=== PATIENT | female | born 1975 | race African-American/Black ===

== ENCOUNTER 2019-05-24 11:07 | Emergency (ER) | payer OTHER ==
[~2019-05-24] VITALS: Ht 165.1 cm; Wt 92.5 kg
[~2019-05-24 11:07] MED LIST: IBUPROFEN600 MG ORAL
[2019-05-24 11:16] VITALS: BP 182/123
--- NOTE | 2019-05-24 11:20 | NUR ---
ED Nurse Note: patient walked into ED c/o right shoulder and rib pain since 05/22/19. patient denies any fall or injury. patient is alert awake x4 ambulatory, breathing unlabored and even.
--- NOTE | 2019-05-24 12:16 | Emergency Room Report ---
History of Present Illness General Chief Complaint: Pain Source: Patient Present Illness HPI Patient is a 43-year-old female presents after increased right-sided shoulder pain for several days. Patient reports having worsening symptoms since last night. She states that she had worsening pain with movement. She denies any recent injury. She had prior history of oral contraceptive use. She is a current smoker and smokes cigars. Pain is worse with movement. She reports pain part primarily to the posterior shoulder blade. Allergies: Coded Allergies: No Known Allergies (Unverified , 11/25/18) Patient History Past Medical History: see triage record Last Menstrual Period: 05/18/19 Now: No Reviewed Nursing Documentation: PMH: Agreed; PSxH: Agreed Nursing Documentation-PMH Past Medical History: No History, Except For Hx Hypertension: Yes Review of Systems All Other Systems: negative except mentioned in HPI Physical Exam Vital Signs Date Time Temp Pulse Resp B/P (MAP) Pulse Ox O2 Delivery O2 Flow Rate FiO2 05/24/19 11:16 98.4 84 23 182/123 97 Room Air Sp02 EP Interpretation: reviewed, normal General Appearance: normal inspection, well appearing, no apparent distress, alert, GCS 15 Head: atraumatic ENT: normal ENT inspection, hearing grossly normal, normal voice Neck: normal inspection, full range of motion, supple, no bony tend Respiratory: normal inspection, normal breath sounds, no respiratory distress, no retraction, no wheezing Cardiovascular #1: regular rate, rhythm, no edema Gastrointestinal: normal inspection, normal bowel sounds, non tender, soft, no guarding, no hernia Genitourinary: no CVA tenderness Musculoskeletal: normal inspection, decreased range of motion, tender Neurologic: normal inspection, alert, oriented x3, responsive, 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 Differential diagnosis include was not limited to rotator cuff tendinitis, septic joint, pulmonary embolism among others. Because of complexity of patient's case laboratory testing and imaging studies were ordered. Last Vital Signs Date Time Temp Pulse Resp B/P (MAP) Pulse Ox O2 Delivery O2 Flow Rate FiO2 05/24/19 11:16 98.4 84 23 182/123 (142) 97 Room Air Referrals: NON PHYSICIAN (PCP) Naresh Sanders MD May 24, 2019 12:16
[2019-05-24 12:40] LABS: BASOPHILS % (AUTO) 0.5 % (0.0-2.0); EOSINOPHILS % (AUTO) 1.5 % (0.0-3.0); HEMATOCRIT 37.4 % (37.0-47.0); HEMOGLOBIN 11.5 G/DL (12.0-16.0); LYMPHOCYTES % (AUTO) 42.3 % (20.0-45.0); MEAN CORPUSCULAR VOLUME 84 FL (80-99); MONOCYTES % (AUTO) 8.1 % (1.0-10.0); NEUTROPHILS % (AUTO) 47.7 % (45.0-75.0); PLATELET COUNT 246 K/UL (150-450); RED BLOOD COUNT 4.45 M/UL (4.20-5.40); RED CELL DISTRIBUTION WIDTH 18.5 % (11.6-14.8); WHITE BLOOD COUNT 4.5 K/UL (4.8-10.8)
--- NOTE | 2019-05-24 12:42 | NUR ---
ED Nurse Note: patient came back from xray
[2019-05-24 12:49] LABS: ANION GAP 9 mmol/L (5-15); BLOOD UREA NITROGEN 15 mg/dL (7-18); CALCIUM 8.9 MG/DL (8.5-10.1); CARBON DIOXIDE 25 MMOL/L (21-32); CHLORIDE 108 MMOL/L (98-107); CREATININE 0.8 MG/DL (0.55-1.30); POTASSIUM 3.8 MMOL/L (3.5-5.1); SODIUM 142 MMOL/L (136-145)
[2019-05-24 12:56] LABS: ALANINE AMINOTRANSFERASE 17 U/L (12-78); ALBUMIN 3.4 G/DL (3.4-5.0); ALBUMIN/GLOBULIN RATIO 0.9 (1.0-2.7); ALKALINE PHOSPHATASE 86 U/L (46-116); ASPARTATE AMINO TRANSFERASE 17 U/L (15-37); BILIRUBIN,TOTAL 0.6 MG/DL (0.2-1.0)
--- NOTE | 2019-05-24 13:25 | NUR ---
ED Nurse Note: patient reports she cannot be , patient is on her period at this time. Dr. Sanders made aware
[2019-05-24] MEDS ORDERED: Ketorolac 30mg Inj IV ONE (13:30)
[2019-05-24 13:40] VITALS: BP 182/123
[2019-05-24] MEDS ORDERED: PEPCID AC20 M2 PO (13:40)
[2019-05-24] MEDS ORDERED: IBUPROFEN600 MG ORAL (13:40)
--- NOTE | 2019-05-24 13:40 | NUR ---
ER DISCHARGE NOTE: Patient is cleared to be discharged per ERMD DR ROBLEDO, pt is aox4, on room air, with stable vital signs. pt was given dc and prescription instructions, pt was able to verbalize understanding, pt id band removed without complications. pt is able to ambulate with steady gait. pt took all belongings.
--- NOTE | 2019-05-24 13:43 | Diagnostic Imaging Report ---
EXAM: XR Right Shoulder Complete, 2 or More Views CLINICAL HISTORY: PAIN TECHNIQUE: Two or more views of the right shoulder. COMPARISON: None FINDINGS: Bones/joints: No displaced fracture or dislocation identified. Joint space is maintained. No bony lesion. Soft tissues: Normal. IMPRESSION: No acute abnormality identified.
--- NOTE | 2019-05-24 14:05 | Diagnostic Imaging Report ---
EXAM: XR Chest, 1 View CLINICAL HISTORY: PAIN TECHNIQUE: Frontal view of the chest. COMPARISON: None FINDINGS: Hardware: None. Lungs/pleura: Normal. No focal consolidation. No pleural effusion or pneumothorax. Heart/mediastinum: Normal. No cardiomegaly. Soft tissues: Unremarkable. Bones: No acute fracture. Upper abdomen: Normal. IMPRESSION: No acute disease identified.
== END 2019-05-24 13:44 | disposition home or self-care (01) ==
LOC: EMR 11:50
DX: M25.511 Pain in right shoulder (principal); I10 Essential (primary) hypertension; F17.210 Nicotine dependence, cigarettes, uncomplicated
CPT/HCPCS: 36415; 71045; 80053; 85025; 85379; 96374; 99284

== ENCOUNTER 2019-06-03 13:58 | Emergency (ER) | payer OTHER ==
[~2019-06-03] VITALS: Ht 165.1 cm; Wt 47.2 kg
[~2019-06-03 13:58] MED LIST changes: +PEPCID AC20 M2 PO
[2019-06-03 14:10] VITALS: BP 172/114
--- NOTE | 2019-06-03 14:10 | NUR ---
ED Nurse Note: pt walked in due to pain on right upper forearm no trauma, happend 1 week ago, pt was seen in the ed for the same reason. ermd on bedside. will continue to monitor.
[2019-06-03] MEDS ORDERED: TRAMADOL HCL50 MG ORAL (14:37)
[2019-06-03 14:43] VITALS: BP 150/100
--- NOTE | 2019-06-03 14:43 | NUR ---
ER DISCHARGE NOTE: Patient is cleared to be discharged per ERMD, pt is aox4, on room air, with stable vital signs. pt was given dc and prescription instructions, pt was able to verbalize understanding, pt id band removed without complications. pt is able to ambulate with steady gait. pt took all belongings.
--- NOTE | 2019-06-03 22:25 | Emergency Room Report ---
History of Present Illness General Chief Complaint: Pain Source: Patient Present Illness Allergies: Coded Allergies: No Known Allergies (Unverified , 11/25/18) Patient History Last Menstrual Period: 05/2019 Now: No Nursing Documentation-[facility] Past Medical History: No History, Except For Hx Hypertension: Yes Physical Exam Vital Signs Date Time Temp Pulse Resp B/P (MAP) Pulse Ox O2 Delivery O2 Flow Rate FiO2 06/03/19 14:04 98.4 63 20 172/114 (133) 97 Room Air Medical Decision Making Diagnostic Impression: Primary Impression: Breast lump Additional Impression: Shoulder pain Last Vital Signs Date Time Temp Pulse Resp B/P (MAP) Pulse Ox O2 Delivery O2 Flow Rate FiO2 06/03/19 14:43 98.4 60 20 150/100 97 Room Air Status: improved Disposition: HOME, SELF-CARE Condition: Stable Scripts Tramadol Hcl* (ULTRAM*) 50 Mg Tablet 50 MG ORAL Q6H PRN for For Pain, #12 TAB 0 Refills Prov: Mohinder Adams MD 06/03/19 Referrals: [facility],REFERRING (PCP) [facility] Open 24 hour /7 days a week by Appointment Only [id number] [facility] [id number] Patient Instructions: Fibroadenoma, [id number] Mohinder Adams MD Jun 03, 2019 22:24
== END 2019-06-03 14:43 | disposition home or self-care (01) ==
LOC: EDBD 13:58 → EMR 14:35
DX: M25.511 Pain in right shoulder (principal); N63.10 Unspecified lump in the right breast, unspecified quadrant; I10 Essential (primary) hypertension
CPT/HCPCS: 99281

== ENCOUNTER 2020-04-16 12:11 | Emergency (ER) | payer SELFPAY ==
[~2020-04-16] VITALS: Ht 165.1 cm; Wt 95.3 kg
[~2020-04-16 12:11] MED LIST changes: +TRAMADOL HCL50 MG ORAL
[2020-04-16] MEDS ORDERED: Omnipaque-300 100ml vial INJ PRN (12:45)
[2020-04-16] MEDS ORDERED: Ketorolac 30mg Inj IV ONE (12:45)
[2020-04-16] MEDS ORDERED: HYDROcodone/Acetamin 10/325 tab ORAL ONE (12:45)
--- NOTE | 2020-04-16 12:56 | NUR ---
ED Nurse Note: Pt ambulated to ed c/o left lower quadrant pain since yesterday with no n/v/d
[2020-04-16 12:57] VITALS: BP 158/94
[2020-04-16 13:23] LABS: BASOPHILS % (AUTO) 1.1 % (0.0-2.0); EOSINOPHILS % (AUTO) 0.4 % (0.0-3.0); HEMATOCRIT 40.7 % (37.0-47.0); HEMOGLOBIN 12.2 G/DL (12.0-16.0); LYMPHOCYTES % (AUTO) 30.8 % (20.0-45.0); MEAN CORPUSCULAR VOLUME 84 FL (80-99); MONOCYTES % (AUTO) 2.8 % (1.0-10.0); PLATELET COUNT 299 K/UL (150-450); RED BLOOD COUNT 4.87 M/UL (4.20-5.40); RED CELL DISTRIBUTION WIDTH 17.5 % (11.6-14.8); WHITE BLOOD COUNT 6.7 K/UL (4.8-10.8)
[2020-04-16 13:29] LABS: ANION GAP 11 mmol/L (5-15); BLOOD UREA NITROGEN 8 mg/dL (7-18); CALCIUM 8.8 MG/DL (8.5-10.1); CARBON DIOXIDE 26 MMOL/L (21-32); CHLORIDE 100 MMOL/L (98-107); CREATININE 0.9 MG/DL (0.55-1.30); POTASSIUM 3.5 MMOL/L (3.5-5.1); SODIUM 137 MMOL/L (136-145)
[2020-04-16 13:33] LABS: ALANINE AMINOTRANSFERASE 13 U/L (12-78); ALBUMIN 3.3 G/DL (3.4-5.0); ALBUMIN/GLOBULIN RATIO 0.6 (1.0-2.7); ALKALINE PHOSPHATASE 107 U/L (46-116); ASPARTATE AMINO TRANSFERASE 22 U/L (15-37); BILIRUBIN,TOTAL 0.8 MG/DL (0.2-1.0)
[2020-04-16] MEDS ORDERED: HYDROmorphone 1mg/ml Carpuject IVP ONE (13:45)
--- NOTE | 2020-04-16 13:45 | NUR ---
ED Nurse Note: Pt ambulated to restroom with steady gait, pt able to provide urine sample.
--- NOTE | 2020-04-16 13:50 | NUR ---
ED Nurse Note: Pt taken to CT on jarvis with radiolcecilio tech
--- NOTE | 2020-04-16 13:55 | NUR ---
Note neyda in EDM - 04/16/20 at 1359 by TERESITA ED Nurse Note: Pt ambulated to restroom with steady gait, pt able to provide urine sample.
[2020-04-16 14:34] LABS: APPEARANCE,URINE CLEAR; BILIRUBIN, URINE NEGATIVE (NEGATIVE); COLOR,URINE PALE YELLOW; GLUCOSE, URINE (UA) NEGATIVE (NEGATIVE); KETONES,URINE 1+ (NEGATIVE); LEUKOCYTE ESTERASE ,URINE 1+ (NEGATIVE); NITRITE,URINE NEGATIVE (NEGATIVE); PH,URINE 5 (4.5-8.0); PROTEIN,URINE NEGATIVE (NEGATIVE); UROBILINOGEN,URINE NORMAL MG/DL (0.0-1.0)
--- NOTE | 2020-04-16 14:53 | Diagnostic Imaging Report ---
Indication: Abdominal pain Technique: CT of the abdomen and pelvis utilizing automated exposure control with intravenous contrast. Venous scanning performed. Axial, sagittal and coronal reformats presented. CT dose: Total DLP 551.6 mGycm; CTDI vol 7.2 mGy Comparison: None Findings: Minimal dependent atelectatic changes noted at the lung bases. There is no focal consolidation, pleural effusion or pneumothorax. Partially imaged heart normal in size. There is cholelithiasis. No CT evidence to suggest acute cholecystitis. No biliary ductal dilatation. Hepatic veins and portal veins appear patent. Hepatic contour is smooth. Focal low-attenuation is noted along the falciform ligament most likely representing focal fatty infiltration. Spleen, adrenal glands and pancreas unremarkable. No peripancreatic inflammatory changes or fluid collections. Kidneys enhance symmetrically. There is no urinary tract stone, hydronephrosis or perinephric stranding. Bladder wall thickening is noted. The uterus is enlarged by multiple heterogeneous masses, some which contain calcifications, others which are low attenuation. These most likely represent fibroids. There is no free intraperitoneal air or fluid. There is no evidence of small bowel obstruction. Appendix is normal. There is a tiny fat-containing umbilical hernia. Abdominal aorta is normal in caliber with mild atherosclerotic calcification. Mild degenerative changes noted in the spine. No acute fracture identified. IMPRESSION: * Enlarged uterus containing multiple heterogeneous masses, some of which are partially calcified. Findings most likely represent fibroids. Gynecologic follow-up recommended. * Cholelithiasis without CT evidence to suggest acute cholecystitis. * No evidence of bowel obstruction. Normal appendix. The CT scanner at [facility] is accredited by the [employer] and the scans are performed using protocols designed to limit radiation exposure to as low as reasonably achievable to attain images of sufficient resolution adequate for diagnostic evaluation.
[2020-04-16 15:23] VITALS: BP 147/89
--- NOTE | 2020-04-16 15:23 | NUR ---
ER DISCHARGE NOTE: Patient is cleared to be discharged per ERMD, pt is aox4, on room air, with stable vital signs. pt was given dc and prescription instructions, pt was able to verbalize understanding, pt id band and iv site removed without complications. pt is able to ambulate with steady gait. pt took all belongings.
[2020-04-16] MEDS ORDERED: LIDODERM700 M1 TOPIC (15:26)
[2020-04-16] MEDS ORDERED: NORCO 5-325 TA1 EAC1 ORAL (15:26)
[2020-04-16] MEDS ORDERED: IBUPROFEN600 M1 ORAL (15:26)
[2020-04-16] MEDS ORDERED: ROBAXIN-750750 MG PO (15:26)
--- NOTE | 2020-04-17 17:04 | Emergency Room Report ---
History of Present Illness General Chief Complaint: Abdominal Pain Source: Patient Present Illness HPI 44-year-old female presents to ED for evaluation. States she is having lower abdominal and back pain. Started yesterday. Dull, 8 out of 10, radiating to the back. Denies flank pain. Denies fevers or chills. Denies nausea or vomiting. No other aggravating relieving factors. Denies any other associated symptoms Allergies: Coded Allergies: MORPHINE (Verified Allergy, Mild, rash, itchiness, 04/16/20) COVID-19 Screening Contact w/high risk pt: No Recent Travel to affected area: No Experienced COVID-19 symptoms?: No COVID-19 Testing performed CHIEF PASSENGER SHIP STEWARD/STEWARDESS: No Patient History Past Medical History: HTN Past Surgical History: none Pertinent Family History: none Social History: Denies: smoking, alcohol use, drug use Now: No Immunizations: UTD Reviewed Nursing Documentation: PMH: Agreed; PSxH: Agreed Nursing Documentation-PMH Hx Hypertension: Yes Review of Systems All Other Systems: negative except mentioned in HPI Physical Exam Vital Signs Date Time Temp Pulse Resp B/P (MAP) Pulse Ox O2 Delivery O2 Flow Rate FiO2 04/16/20 12:23 98.1 76 20 158/94 (115) 97 Room Air Sp02 EP Interpretation: reviewed, normal General Appearance: no apparent distress, alert, GCS 15, non-toxic, obese Head: normocephalic, atraumatic Eyes: bilateral eye normal inspection, bilateral eye PERRL ENT: hearing grossly normal, normal pharynx, no angioedema, normal voice Neck: full range of motion, supple/symm/no masses Respiratory: chest non-tender, lungs clear, normal breath sounds, speaking full sentences Cardiovascular #1: regular rate, rhythm, no edema Cardiovascular #2: 2+ carotid (R), 2+ carotid (L), 2+ radial (R), 2+ radial (L) , 2+ dorsalis pedis (R), 2+ dorsalis pedis (L) Gastrointestinal: normal bowel sounds, soft, non-distended, no guarding, no rebound, tenderness - LLQ Rectal: deferred Genitourinary: normal inspection, no CVA tenderness Musculoskeletal: back normal, normal range of motion, gait/station normal, non- tender Neurologic: alert, motor strength/tone normal, oriented x3, sensory intact, responsive, speech normal Psychiatric: judgement/insight normal, memory normal, mood/affect normal, no suicidal/homicidal ideation Reflexes: 3+ bicep (R), 3+ bicep (L), 3+ tricep (R), 3+ tricep (L), 3+ knee (R) , 3+ knee (L) Skin: no rash Lymphatic: no adenopathy Medical Decision Making Diagnostic Impression: Primary Impression: Fibroids Additional Impression: Back pain Qualified Codes: M54.5 - Low back pain ER Course Hospital Course 44-year-old F presents to ED with abdominal pain and back pain Differential diagnosis includes-appendicitis, cholecystitis, small bowel obstruction, gastritis, Clinical course Patient placed on stretcher. After initial history and physical I ordered labs , IV fluids, pain medications and CT scan Labs - no leukocytosis, Cr 1.6, LFTs normal, UA unremarkable CT scan shows no acute pathology - large calicifactions in uterus consistent with fibroids Upon reassessment, patient states pain has improved. Discussed findings with patient. The enlarged calcifications in the uterus do not appear to be consistent with patient source of pain. Likely an incidental finding. I believe her pain was muscular. Safe for discharge for close outpatient follow- up. Provided copy of CT report. 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 Diagnosis - fibroids, back pain Stable and discharged to home. Followup with PMD. Return to ED if symptoms recur or worsen Labs Test 04/16/20 12:45 04/16/20 13:50 White Blood Count 6.7 K/UL (4.8-10.8) Red Blood Count 4.87 M/UL (4.20-5.40) Hemoglobin 12.2 G/DL (12.0-16.0) Hematocrit 40.7 % (37.0-47.0) Mean Corpuscular Volume 84 FL (80-99) Mean Corpuscular Hemoglobin 25.0 PG (27.0-31.0) Mean Corpuscular Hemoglobin Concent 29.9 G/DL (32.0-36.0) Red Cell Distribution Width 17.5 % (11.6-14.8) Platelet Count 299 K/UL (150-450) Mean Platelet Volume 6.8 FL (6.5-10.1) Neutrophils (%) (Auto) 65.0 % (45.0-75.0) Lymphocytes (%) (Auto) 30.8 % (20.0-45.0) Monocytes (%) (Auto) 2.8 % (1.0-10.0) Eosinophils (%) (Auto) 0.4 % (0.0-3.0) Basophils (%) (Auto) 1.1 % (0.0-2.0) Sodium Level 137 MMOL/L (136-145) Potassium Level 3.5 MMOL/L (3.5-5.1) Chloride Level 100 MMOL/L (98-107) Carbon Dioxide Level 26 MMOL/L (21-32) Anion Gap 11 mmol/L (5-15) Blood Urea Nitrogen 8 mg/dL (7-18) Creatinine 0.9 MG/DL (0.55-1.30) Estimat Glomerular Filtration Rate > 60 mL/min (>60) Glucose Level 93 MG/DL (74-106) Calcium Level 8.8 MG/DL (8.5-10.1) Total Bilirubin 0.8 MG/DL (0.2-1.0) Aspartate Amino Transf (AST/SGOT) 22 U/L (15-37) Alanine Aminotransferase (ALT/SGPT) 13 U/L (12-78) Alkaline Phosphatase 107 U/L (46-116) Total Protein 8.4 G/DL (6.4-8.2) Albumin 3.3 G/DL (3.4-5.0) Globulin 5.1 g/dL Albumin/Globulin Ratio 0.6 (1.0-2.7) Lipase 88 U/L (73-393) Human Chorionic Gonadotropin, Qual Negative (NEGATIVE) Urine Color Pale yellow Urine Appearance Clear Urine pH 5 (4.5-8.0) Urine Specific [place] 1.010 (1.005-1.035) Urine Protein Negative (NEGATIVE) Urine Glucose (UA) Negative (NEGATIVE) Urine Ketones 1+ (NEGATIVE) Urine Blood Negative (NEGATIVE) Urine Nitrite Negative (NEGATIVE) Urine Bilirubin Negative (NEGATIVE) Urine Urobilinogen Normal MG/DL (0.0-1.0) Urine Leukocyte Esterase 1+ (NEGATIVE) Urine RBC 0-2 /HPF (0 - 2) Urine WBC 0-2 /HPF (0 - 2) Urine Squamous Epithelial Cells Few /LPF (NONE/OCC) Urine Bacteria Occasional /HPF (NONE) Urine Mucus Occasional /LPF Urine HCG, Qualitative Negative (NEGATIVE) CT/MRI/US Diagnostic Results CT/MRI/US Diagnostic Results : Imaging Test Ordered: CT A/P Impression Procedure: CT Abdomen Pelvis w/Contrast Indication: Abdominal pain Technique: CT of the abdomen and pelvis utilizing automated exposure control with intravenous contrast. Venous scanning performed. Axial, sagittal and coronal reformats presented. CT dose: Total DLP 551.6 mGycm; CTDI vol 7.2 mGy Comparison: None Findings: Minimal dependent atelectatic changes noted at the lung bases. There is no focal consolidation, pleural effusion or pneumothorax. Partially imaged heart normal in size. There is cholelithiasis. No CT evidence to suggest acute cholecystitis. No biliary ductal dilatation. Hepatic veins and portal veins appear patent. Hepatic contour is smooth. Focal low-attenuation is noted along the falciform ligament most likely representing focal fatty infiltration. Spleen, adrenal glands and pancreas unremarkable. No peripancreatic inflammatory changes or fluid collections. Kidneys enhance symmetrically. There is no urinary tract stone, hydronephrosis or perinephric stranding. Bladder wall thickening is noted. The uterus is enlarged by multiple heterogeneous masses, some which contain calcifications, others which are low attenuation. These most likely represent fibroids. There is no free intraperitoneal air or fluid. There is no evidence of small bowel obstruction. Appendix is normal. There is a tiny fat-containing umbilical hernia. Abdominal aorta is normal in caliber with mild atherosclerotic calcification. Mild degenerative changes noted in the spine. No acute fracture identified. IMPRESSION: * Enlarged uterus containing multiple heterogeneous masses, some of which are partially calcified. Findings most likely represent fibroids. Gynecologic follow -up recommended. * Cholelithiasis without CT evidence to suggest acute cholecystitis. * No evidence of bowel obstruction. Normal appendix. The CT scanner at [facility] is accredited by the [employer] and the scans are performed using protocols designed to limit radiation exposure to as low as reasonably achievable to attain images of sufficient resolution adequate for diagnostic evaluation. Last Vital Signs Date Time Temp Pulse Resp B/P (MAP) Pulse Ox O2 Delivery O2 Flow Rate FiO2 6/19/20 15:23 98.7 82 19 147/89 100 Room Air Status: improved Disposition: HOME, SELF-CARE Condition: Stable Scripts Lidocaine Patch* (Lidoderm Patch*) 1 Each Adh..patch 1 PATCH TOPIC DAILY, #7 PATCH 0 Refills Patch(es) may remain in place for up to 12 hours in any 24-hour period. Prov: Mohinder Adams MD 04/16/20 Methocarbamol* (ROBAXIN-750*) 750 Mg Tablet 750 MG PO TID, #21 TAB 0 Refills Prov: Mohinder Adams MD 04/16/20 Ibuprofen* (MOTRIN*) 600 Mg Tablet 600 MG ORAL Q8H PRN for FOR PAIN, #30 TAB 0 Refills Prov: Mohinder Adams MD 04/16/20 Hydrocodone Bit/Acetaminophen 5-325* (NORCO 5-325 TABLET*) 1 Each Tablet 1 TAB ORAL Q6H PRN for FOR PAIN, #10 TAB 0 Refills Prov: Mohinder Adams MD 04/16/20 Referrals: NOT CHOSEN [facility]/,REFERRING (PCP) Patient Instructions: Abdominal or Pelvic Ultrasound, [id number], Back Exercises, [id number] Mohinder Adams MD Apr 17, 2020 17:04
== END 2020-04-16 15:23 | disposition home or self-care (01) ==
LOC: EMR 12:59
DX: D25.9 Leiomyoma of uterus, unspecified (principal); M54.5 Low back pain; I10 Essential (primary) hypertension; Z88.5 Allergy status to narcotic agent
CPT/HCPCS: 36415; 74177; 80053; 81003; 81025; 83690; 84703; 85025; 96374; 96375; 99284; J1170; J1885; J7040; Q9967

== ENCOUNTER 2020-11-17 07:14 | Inpatient (IN) | payer MEDICAID ==
[~2020-11-17] VITALS: Ht 165.1 cm; Wt 90.7 kg
[~2020-11-17 07:14] MED LIST changes: +IBUPROFEN600 M1 ORAL; +LIDODERM700 M1 TOPIC; +NORCO 5-325 TA1 EAC1 ORAL; +ROBAXIN-750750 MG PO
[2020-11-17] MEDS ORDERED: LORazepam Inj 2mg/ml 1ml IV ONE (07:30)
[2020-11-17 07:38] LABS: BASOPHILS % (AUTO) 2.4 % (0.0-2.0); EOSINOPHILS % (AUTO) 0.5 % (0.0-3.0); HEMATOCRIT 43.4 % (37.0-47.0); HEMOGLOBIN 13.2 G/DL (12.0-16.0); LYMPHOCYTES % (AUTO) 38.4 % (20.0-45.0); MEAN CORPUSCULAR VOLUME 90 FL (80-99); MONOCYTES % (AUTO) 4.1 % (1.0-10.0); NEUTROPHILS % (AUTO) 54.6 % (45.0-75.0); PLATELET COUNT 209 K/UL (150-450); RED BLOOD COUNT 4.85 M/UL (4.20-5.40); RED CELL DISTRIBUTION WIDTH 16.6 % (11.6-14.8); WHITE BLOOD COUNT 3.5 K/UL (4.8-10.8)
--- NOTE | 2020-11-17 07:40 | Emergency Room Report ---
History of Present Illness General Chief Complaint: Headache Source: Patient, Medical Record Present Illness HPI 44-year-old female with a history of recent hysterectomy 8 weeks ago, history of hypertension on amlodipine, here with right-sided headache for a week and a right upper extremity weakness for 3 days. Patient says that she has been doing well after her hysterectomy and then a week ago had gradual onset of right-sided headache "behind my right eye." Denies any vision changes. Said that she has been using Tylenol for the headache. 3 weeks ago began to have weakness of her right upper extremity. Had never had symptoms like these before. No history of CVA. No head trauma. No other weakness. Denies vision changes, fevers, chills, chest pain, palpitation, shortness of breath, back pain, abdominal pain, nausea, vomiting, diarrhea, dysuria. Allergies: Coded Allergies: MORPHINE (Verified Allergy, Mild, rash, itchiness, 04/16/20) COVID-19 Screening Contact w/high risk pt: No Recent Travel to affected area: No Experienced COVID-19 symptoms?: No COVID-19 Testing performed LINING [employer]S SEWER: No COVID-19 Testing Source: [employer] Nursing Documentation-[facility] Past Medical History: No History, Except For Hx Hypertension: Yes Review of Systems All Other Systems: negative except mentioned in HPI Physical Exam Vital Signs Date Time Temp Pulse Resp B/P (MAP) Pulse Ox O2 Delivery O2 Flow Rate FiO2 11/17/20 07:16 97.5 85 22 182/111 (134) 100 Room Air Sp02 EP Interpretation: reviewed, normal General Appearance: alert, non-toxic, moderate distress, other - Highly anxious, hyperventilating Head: normocephalic, atraumatic Eyes: bilateral eye normal inspection, bilateral eye PERRL ENT: hearing grossly normal, normal pharynx, no angioedema, normal voice Neck: full range of motion, supple/symm/no masses Respiratory: chest non-tender, lungs clear, normal breath sounds, speaking full sentences Cardiovascular #1: regular rate, rhythm, no edema Cardiovascular #2: 2+ carotid (R), 2+ carotid (L), 2+ radial (R), 2+ radial (L), 2+ dorsalis pedis (R), 2+ dorsalis pedis (L) Gastrointestinal: normal bowel sounds, non tender, soft, non-distended, no guarding, no rebound Rectal: deferred Genitourinary: normal inspection, no CVA tenderness Musculoskeletal: back normal, normal range of motion, gait/station normal, non- tender Neurologic: alert, oriented x3, sensory intact, responsive, speech normal, other - 5 out of 5 strength all extremities, but notably weaker flexor and extensor strength of the right upper extremity compared to left upper extremity. Positive pronator drift right upper extremity. NIH stroke scale 1 Psychiatric: judgement/insight normal, memory normal, mood/affect normal, no suicidal/homicidal ideation Lymphatic: no adenopathy Medical Decision Making Diagnostic Impression: Primary Impression: Headache Additional Impression: CVA (cerebral vascular accident) ER Course EKG: NSR, no ischemia, intervals WNL. No ectopy. Rate 63 bpm Rhythm strip: patient monitored for arrhythmias - no malignant dysrhythmias, runs of PVCs, nor pauses noted CT head: No acute abnormalities CXR: No infiltrate/effusion. Mediastinum within normal limits. No consolidations. No free air under the diaphragm. No bony abnormalities Laboratory Tests Test 11/17/20 07:20 11/17/20 08:00 White Blood Count 3.5 K/UL (4.8-10.8) L Red Blood Count 4.85 M/UL (4.20-5.40) Hemoglobin 13.2 G/DL (12.0-16.0) Hematocrit 43.4 % (37.0-47.0) Mean Corpuscular Volume 90 FL (80-99) Mean Corpuscular Hemoglobin 27.3 PG (27.0-31.0) Mean Corpuscular Hemoglobin Concent 30.4 G/DL (32.0-36.0) L Red Cell Distribution Width 16.6 % (11.6-14.8) H Platelet Count 209 K/UL (150-450) Mean Platelet Volume 7.9 FL (6.5-10.1) Neutrophils (%) (Auto) 54.6 % (45.0-75.0) Lymphocytes (%) (Auto) 38.4 % (20.0-45.0) Monocytes (%) (Auto) 4.1 % (1.0-10.0) Eosinophils (%) (Auto) 0.5 % (0.0-3.0) Basophils (%) (Auto) 2.4 % (0.0-2.0) H Sodium Level 142 MMOL/L (136-145) Potassium Level 4.0 MMOL/L (3.5-5.1) Chloride Level 107 MMOL/L (98-107) Carbon Dioxide Level 24 MMOL/L (21-32) Anion Gap 11 mmol/L (5-15) Blood Urea Nitrogen 15 mg/dL (7-18) Creatinine 0.9 MG/DL (0.55-1.30) Estimated Glomerular Filtration Rate > 60 mL/min (>60) Glucose Level 114 MG/DL (74-106) H Calcium Level 9.4 MG/DL (8.5-10.1) Total Bilirubin 0.5 MG/DL (0.2-1.0) Aspartate Amino Transferase (AST) 31 U/L (15-37) Alanine Aminotransferase (ALT) 25 U/L (12-78) Alkaline Phosphatase 147 U/L (46-116) H Troponin I 0.000 ng/mL (0.000-0.056) Total Protein 8.2 G/DL (6.4-8.2) Albumin 3.6 G/DL (3.4-5.0) Globulin 4.6 g/dL Albumin/Globulin Ratio 0.8 (1.0-2.7) L Urine Color Pale yellow Urine Appearance Clear Urine pH 6 (4.5-8.0) Urine Specific [place] 1.010 (1.005-1.035) Urine Protein Negative (NEGATIVE) Urine Glucose (UA) Negative (NEGATIVE) Urine Ketones Negative (NEGATIVE) Urine Blood 1+ (NEGATIVE) H Urine Nitrite Negative (NEGATIVE) Urine Bilirubin Negative (NEGATIVE) Urine Urobilinogen Normal MG/DL (0.0-1.0) Urine Leukocyte Esterase 1+ (NEGATIVE) H Urine RBC 0-2 /HPF (0 - 2) Urine WBC 0-2 /HPF (0 - 2) Urine Squamous Epithelial Cells Occasional /LPF Urine Bacteria Occasional /HPF (NONE) Urine Opiates Screen Negative (NEGATIVE) Urine Barbiturates Screen Negative (NEGATIVE) Phencyclidine (PCP) Screen Negative (NEGATIVE) Urine Amphetamines Screen Negative (NEGATIVE) Urine Benzodiazepines Screen Negative (NEGATIVE) Urine Cocaine Screen Negative (NEGATIVE) Urine Marijuana (THC) Screen Positive (NEGATIVE) H 44-year-old female here with right upper extremity weakness. Patient had 5 out of 5 strength in all extremities but was noted to have a positive pronator drift of the right upper extremity and notable weakness of the right upper extremity compared to the left upper extremity. Patient says the symptoms have been on going for 3 days. Out of TPA window. CT had unremarkable. She was given an aspirin in the emergency department. NIH stroke scale 1. Patient admitted to telemetry for suspected CVA under care of Dr Eastman.. Last Vital Signs Date Time Temp Pulse Resp B/P (MAP) Pulse Ox O2 Delivery O2 Flow Rate FiO2 11/17/20 07:31 85 22 182/111 100 11/17/20 07:16 97.5 Room Air Jin Cardenas M.D. Nov 17, 2020 07:40
[2020-11-17 07:41] LABS: ANION GAP 11 mmol/L (5-15); BLOOD UREA NITROGEN 15 mg/dL (7-18); CALCIUM 9.4 MG/DL (8.5-10.1); CARBON DIOXIDE 24 MMOL/L (21-32); CHLORIDE 107 MMOL/L (98-107); CREATININE 0.9 MG/DL (0.55-1.30); SODIUM 142 MMOL/L (136-145)
[2020-11-17 07:45] LABS: ALANINE AMINOTRANSFERASE 25 U/L (12-78); ALBUMIN 3.6 G/DL (3.4-5.0); ALBUMIN/GLOBULIN RATIO 0.8 (1.0-2.7); ALKALINE PHOSPHATASE 147 U/L (46-116); ASPARTATE AMINO TRANSFERASE 31 U/L (15-37); BILIRUBIN,TOTAL 0.5 MG/DL (0.2-1.0)
--- NOTE | 2020-11-17 08:00 | NUR ---
ED Nurse Note:pt. came from home with c/o hypertension and headache for 1 week, pt. is ambulatory a/ox4, placed on bus monitor , blood and urine sent to labs, pt. received iv med, has ct scan done
[2020-11-17 08:21] LABS: APPEARANCE,URINE CLEAR; BILIRUBIN, URINE NEGATIVE (NEGATIVE); COLOR,URINE PALE YELLOW; GLUCOSE, URINE (UA) NEGATIVE (NEGATIVE); KETONES,URINE NEGATIVE (NEGATIVE); LEUKOCYTE ESTERASE ,URINE 1+ (NEGATIVE); NITRITE,URINE NEGATIVE (NEGATIVE); PH,URINE 6 (4.5-8.0); PROTEIN,URINE NEGATIVE (NEGATIVE); UROBILINOGEN,URINE NORMAL MG/DL (0.0-1.0)
[2020-11-17 08:24] VITALS: BP 160/93
[2020-11-17 08:49] VITALS: BP 134/73
--- NOTE | 2020-11-17 09:09 | Diagnostic Imaging Report ---
Indication: Headache, hypertension Technique: Continuous helical CT scanning of the head was performed without intravenous contrast material. Axial and coronal 5 mm sections were generated. Radiation dose was minimized using automated exposure control Dose: Total Dose Length Product - DLP 1018.[address] Dose Index - CTDIvol(s) 53.4 mGy. Comparison: None FINDINGS: There is no acute intracranial hemorrhage, mass effect or cortical edema. Powell-white differentiation appears preserved. There is no shift of the midline structures. The ventricles, cisterns and sulci are normal for age. No effacement of the basal cisterns. Partially empty sella suggested. Visualized mastoid air cells and paranasal sinuses are unremarkable. No focal lesions of the bony calvarium or soft tissues of the scalp are seen. IMPRESSION: No evidence of acute intracranial hemorrhage, mass effect or cortical edema. MRI may be obtained for more sensitive evaluation as clinically indicated. The CT scanner at [facility] is accredited by the [place] [employer] and the scans are performed using protocols designed to limit radiation exposure to as low as reasonably achievable to attain images of sufficient resolution adequate for diagnostic evaluation.
--- NOTE | 2020-11-17 09:21 | Diagnostic Imaging Report ---
Indication: Chest pain, hypertension Technique: XRAY Chest 1v Comparison: 05/24/2019 Findings: Heart size and mediastinal contours are within normal limits for AP technique. There is no focal airspace consolidation, pneumothorax or pleural effusion. Osseous structures demonstrate no acute abnormality. Impression: No radiographic evidence of acute cardiopulmonary disease.
[2020-11-17] MEDS ORDERED: BP med (09:35)
[2020-11-17 12:25] VITALS: BP 148/92
--- NOTE | 2020-11-17 13:00 | NUR ---
ED Nurse Note:called report to tele, given to Rajendra RN, pt. taken up stairs
--- NOTE | 2020-11-17 13:27 | NUR ---
NURSE NOTES: Patient received from ED nurse. patient ambulated to bed with steady gait. Patient on room air was O2 saturation within normal limits. The patient on arrival came with Hypertension and on arrival BP was 187/119. Primary contacted for orders and PRN medication fro BP. Patient has a right AC IV 20G that is saline locked, clean patent and intact. The patient belonging list were verified and acknowledged. The patients bed is in lowest position, locked, side rails x2, bed alarm in zone 1 and call light within reach. Patient oriented to room and call light for any further needs.
--- NOTE | 2020-11-17 14:43 | Cardiac Electrophysiology PN ---
Subjective Subjective [id number] Objective Last 24 Hour Vital Signs Date Time Temp Pulse Resp B/P (MAP) Pulse Ox O2 Delivery O2 Flow Rate FiO2 11/17/20 13:25 Room Air 11/17/20 12:29 97.5 66 18 148/92 100 Room Air 11/17/20 12:25 97.5 66 18 148/92 100 Room Air 11/17/20 08:49 97.5 68 18 134/73 100 Room Air 11/17/20 08:24 97.5 67 18 160/93 100 Room Air 11/17/20 08:23 85 22 182/111 100 11/17/20 07:31 85 22 182/111 100 11/17/20 07:16 97.5 85 22 182/111 (134) 100 Room Air Laboratory Tests Test 11/17/20 07:20 11/17/20 08:00 White Blood Count 3.5 K/UL (4.8-10.8) L Red Blood Count 4.85 M/UL (4.20-5.40) Hemoglobin 13.2 G/DL (12.0-16.0) Hematocrit 43.4 % (37.0-47.0) Mean Corpuscular Volume 90 FL (80-99) Mean Corpuscular Hemoglobin 27.3 PG (27.0-31.0) Mean Corpuscular Hemoglobin Concent 30.4 G/DL (32.0-36.0) L Red Cell Distribution Width 16.6 % (11.6-14.8) H Platelet Count 209 K/UL (150-450) Mean Platelet Volume 7.9 FL (6.5-10.1) Neutrophils (%) (Auto) 54.6 % (45.0-75.0) Lymphocytes (%) (Auto) 38.4 % (20.0-45.0) Monocytes (%) (Auto) 4.1 % (1.0-10.0) Eosinophils (%) (Auto) 0.5 % (0.0-3.0) Basophils (%) (Auto) 2.4 % (0.0-2.0) H Sodium Level 142 MMOL/L (136-145) Potassium Level 4.0 MMOL/L (3.5-5.1) Chloride Level 107 MMOL/L (98-107) Carbon Dioxide Level 24 MMOL/L (21-32) Anion Gap 11 mmol/L (5-15) Blood Urea Nitrogen 15 mg/dL (7-18) Creatinine 0.9 MG/DL (0.55-1.30) Estimat Glomerular Filtration Rate > 60 mL/min (>60) Glucose Level 114 MG/DL (74-106) H Calcium Level 9.4 MG/DL (8.5-10.1) Total Bilirubin 0.5 MG/DL (0.2-1.0) Aspartate Amino Transf (AST/SGOT) 31 U/L (15-37) Alanine Aminotransferase (ALT/SGPT) 25 U/L (12-78) Alkaline Phosphatase 147 U/L (46-116) H Troponin I 0.000 ng/mL (0.000-0.056) Total Protein 8.2 G/DL (6.4-8.2) Albumin 3.6 G/DL (3.4-5.0) Globulin 4.6 g/dL Albumin/Globulin Ratio 0.8 (1.0-2.7) L Urine Color Pale yellow Urine Appearance Clear Urine pH 6 (4.5-8.0) Urine Specific [place] 1.010 (1.005-1.035) Urine Protein Negative (NEGATIVE) Urine Glucose (UA) Negative (NEGATIVE) Urine Ketones Negative (NEGATIVE) Urine Blood 1+ (NEGATIVE) H Urine Nitrite Negative (NEGATIVE) Urine Bilirubin Negative (NEGATIVE) Urine Urobilinogen Normal MG/DL (0.0-1.0) Urine Leukocyte Esterase 1+ (NEGATIVE) H Urine RBC 0-2 /HPF (0 - 2) Urine WBC 0-2 /HPF (0 - 2) Urine Squamous Epithelial Cells Occasional /LPF Urine Bacteria Occasional /HPF (NONE) Urine Opiates Screen Negative (NEGATIVE) Urine Barbiturates Screen Negative (NEGATIVE) Phencyclidine (PCP) Screen Negative (NEGATIVE) Urine Amphetamines Screen Negative (NEGATIVE) Urine Benzodiazepines Screen Negative (NEGATIVE) Urine Cocaine Screen Negative (NEGATIVE) Urine Marijuana (THC) Screen Positive (NEGATIVE) H Donell Urias MD Nov 17, 2020 14:43
[2020-11-17] MEDS ORDERED: Varibar Pudding 230ml MC PRN (15:00)
[2020-11-17] MEDS ORDERED: Varibar Nectar 240ml MC PRN (15:00)
[2020-11-17] MEDS ORDERED: Varibar Thin Liquid powder 148gm MC PRN (15:00)
[2020-11-17] MEDS ORDERED: Varibar Honey 250ml MC PRN (15:00)
[2020-11-17] MEDS: D5 1/2NS 1,000 ML IV SCH (15:29)
--- NOTE | 2020-11-17 15:30 | Consultation ---
DATE OF CONSULTATION: 11/17/2020 CARDIOLOGY CONSULTATION REFERRING PHYSICIAN: Stuart Eastman D.O. REASON FOR CONSULTATION: Accelerated hypertension. HISTORY OF PRESENT ILLNESS: The patient is a 44-year-old lady with history of hysterectomy about 8 weeks ago as well as history of hypertension, who presented to the emergency room with severe right-sided headache for a week and right upper extremity weakness for 3 days. The patient has been doing well since her hysterectomy, then, a week ago, had gradual onset of right-sided headache behind her right eye. Does not have any vision changes. The patient also started having weakness in the right upper extremity about 3 weeks ago. The patient has no prior stroke or any coronary artery disease or congestive heart failure. The patient's blood pressure is 180s/111 in the emergency room with a pulse of 85. At the time of my evaluation, the patient denies any chest pain or shortness of breath. REVIEW OF SYSTEMS: Negative other than what was mentioned in history of present illness. PAST MEDICAL HISTORY: As mentioned above. FAMILY HISTORY: Noncontributory. SOCIAL HISTORY: She lives at home, does not smoke or drink alcohol. PHYSICAL EXAMINATION: VITAL SIGNS: Blood pressure of 148/92, pulse 66, respirations 18. She is afebrile. HEAD AND NECK: No JVD. LUNGS: Clear. CARDIOVASCULAR: Regular S1 and S2 with no gallop or murmur. ABDOMEN: Soft. EXTREMITIES: No pitting edema. LABORATORY AND DIAGNOSTIC DATA: Labs show white count of 3.5, hemoglobin 13.2, hematocrit 43.4, platelet count 209. Sodium 142, potassium 4.0, BUN of 15, creatinine of 0.9, and glucose of 114. First troponin was negative. Urine tox is positive for marijuana. ASSESSMENT AND PLAN: 1. Accelerated hypertension, causing severe headache, possibly TIA. We will start the patient on amlodipine 5 mg b.i.d. and lisinopril 10 mg b.i.d. I will add p.r.n. clonidine as well. We will check a thyroid function test and we will get an echocardiogram for further evaluation and management. 2. Weakness. The CT of the brain was negative at this time. Further evaluation by Neurology. Thank you very much for allowing me to participate in the care of this patient. Please do not hesitate to contact me for any questions regarding my evaluation. Donell Urias M.D. DR: PAULY JOB#: [id number] CC:
[2020-11-17 16:00] VITALS: BP 146/95
[2020-11-17] MEDS: Lisinopril 10mg tab ORAL SCH (17:26)
--- NOTE | 2020-11-17 18:37 | NUR ---
NURSE NOTES: Dr. Holder has been contacted for DVT prophylaxis in which he prescribed the patient walk 300 feet a day and no pharmacological DVT due to possible CVA.
--- NOTE | 2020-11-17 19:48 | NUR ---
NURSE HAND-OFF REPORT: Important Events on Shift:[Admission, BP meds] Patient Status: [Full code] Diet: [Regular diet] Pending Orders: [N/A] Pending Results/Labs:[N/A] Pending MD notification:[N/A] Latest Vital Signs: Temperature 98.2 , Pulse 82 , B/P 150 /86 , Respiratory Rate 20 , O2 SAT 97 , Room Air, O2 Flow Rate . Vital Sign Comment: [] EKG Rhythm: Sinus Rhythm Rhythm change?: N MD Notified?: - MD Response: Latest Manzo Fall Score: 40 Fall Risk: Medium Risk Safety Measures: Call light Within Reach, Bed Alarm Zone 1, Side Rails Side Rails x2, Bed position Low and Locked. Fall Precautions: [place] Patient Fall Education Report given to [SHON Willard].
--- NOTE | 2020-11-17 19:50 | NUR ---
NURSE NOTES: Patient received from SHON Georges. Patient is awake, alert and oriented x 4. Patient is on room air, with no signs of acute respiratory distress noted. Patient has no complaints as of the moment. Patient has an IV on her wrist 24 gauge with D5 1/2 NS running at 60 ml/hr. Bed is in the lowest position and locked, call light within reach. Will continue to monitor.
[2020-11-17 20:00] VITALS: BP_SYST 122; BP_SYST 148; BP_DIAS 68; BP_DIAS 82
--- NOTE | 2020-11-17 21:59 | Neurology Progress Note ---
Interim History Interim History Interim History CHIEF COMPLAINT: Right upper extremity weakness HPI: 44-year-old F who lives at home presents with increased weakness which began about 4 days ago and pt says that the weakness occurerd only in the the right UE with no numbness and lasted only for 24 hours. Has not happened before. Pt has a hx of hypertension and weakness. pt is now admitted to telemetry. No nausea, vomiting, or diarrhea. Negative for 10 point review of systems PAST MEDICAL HISTORY: HTN PAST SURGICAL HISTORY: Left wrist, hysterectomy. MEDICATIONS: Tylenol, amlodipine, lisinopril, clonidine. ALLERGIES: Morphine. SOCIAL HISTORY: No smoking. Positive alcohol. Positive marijuana use. Objective Physical Exam Last Vital Signs Date Time Temp Pulse Resp B/P (MAP) Pulse Ox O2 Delivery O2 Flow Rate FiO2 11/17/20 21:00 Room Air 11/17/20 20:00 70 11/17/20 20:00 99.5 18 122/68 (86) 97 Laboratory Tests Test 11/17/20 07:20 11/17/20 08:00 White Blood Count 3.5 K/UL (4.8-10.8) L Red Blood Count 4.85 M/UL (4.20-5.40) Hemoglobin 13.2 G/DL (12.0-16.0) Hematocrit 43.4 % (37.0-47.0) Mean Corpuscular Volume 90 FL (80-99) Mean Corpuscular Hemoglobin 27.3 PG (27.0-31.0) Mean Corpuscular Hemoglobin Concent 30.4 G/DL (32.0-36.0) L Red Cell Distribution Width 16.6 % (11.6-14.8) H Platelet Count 209 K/UL (150-450) Mean Platelet Volume 7.9 FL (6.5-10.1) Neutrophils (%) (Auto) 54.6 % (45.0-75.0) Lymphocytes (%) (Auto) 38.4 % (20.0-45.0) Monocytes (%) (Auto) 4.1 % (1.0-10.0) Eosinophils (%) (Auto) 0.5 % (0.0-3.0) Basophils (%) (Auto) 2.4 % (0.0-2.0) H Sodium Level 142 MMOL/L (136-145) Potassium Level 4.0 MMOL/L (3.5-5.1) Chloride Level 107 MMOL/L (98-107) Carbon Dioxide Level 24 MMOL/L (21-32) Anion Gap 11 mmol/L (5-15) Blood Urea Nitrogen 15 mg/dL (7-18) Creatinine 0.9 MG/DL (0.55-1.30) Estimat Glomerular Filtration Rate > 60 mL/min (>60) Glucose Level 114 MG/DL (74-106) H Calcium Level 9.4 MG/DL (8.5-10.1) Total Bilirubin 0.5 MG/DL (0.2-1.0) Aspartate Amino Transf (AST/SGOT) 31 U/L (15-37) Alanine Aminotransferase (ALT/SGPT) 25 U/L (12-78) Alkaline Phosphatase 147 U/L (46-116) H Troponin I 0.000 ng/mL (0.000-0.056) Total Protein 8.2 G/DL (6.4-8.2) Albumin 3.6 G/DL (3.4-5.0) Globulin 4.6 g/dL Albumin/Globulin Ratio 0.8 (1.0-2.7) L Urine Color Pale yellow Urine Appearance Clear Urine pH 6 (4.5-8.0) Urine Specific [place] 1.010 (1.005-1.035) Urine Protein Negative (NEGATIVE) Urine Glucose (UA) Negative (NEGATIVE) Urine Ketones Negative (NEGATIVE) Urine Blood 1+ (NEGATIVE) H Urine Nitrite Negative (NEGATIVE) Urine Bilirubin Negative (NEGATIVE) Urine Urobilinogen Normal MG/DL (0.0-1.0) Urine Leukocyte Esterase 1+ (NEGATIVE) H Urine RBC 0-2 /HPF (0 - 2) Urine WBC 0-2 /HPF (0 - 2) Urine Squamous Epithelial Cells Occasional /LPF Urine Bacteria Occasional /HPF (NONE) Urine Opiates Screen Negative (NEGATIVE) Urine Barbiturates Screen Negative (NEGATIVE) Phencyclidine (PCP) Screen Negative (NEGATIVE) Urine Amphetamines Screen Negative (NEGATIVE) Urine Benzodiazepines Screen Negative (NEGATIVE) Urine Cocaine Screen Negative (NEGATIVE) Urine Marijuana (THC) Screen Positive (NEGATIVE) H Neurologic Exam Objective Pt examied on facetime: CARDIOVASCULAR: pedal pulses present; pt obese LUNGS: non labored breathing ABDOMEN: Soft EXTREMITIES: No cyanosis SKIN: No rashes General neuro exam Mental status A/O x 3 expressive and receptive language intact Cranial nerve 2: vision intact Cranial nerves 3, 4, 6: EOMI no nystagmus Cranial nerve 5: pt says sensation intact b/l Cranial nerve 7: face symmetric on smile can raise eyebros CN8-Able to hear on on NML conversation B/L Cranial nerves 9 and 10. Positive for cough reflex Neck: Able to move the head to the left and right Able to shrug shoulders Cranial nerve 12: midline Pronator drift mild positive on the right Good fine finger movments Strength able to move all extremities with good ROM; Cerebellum FFTN Sensation: no loss of sensation per pt Rombergexamdeferred Gait intact narrow Impression/Recommendations Problems: (1) Right arm weakness Assessment & Plan: Rule out stroke vs TIA vs low likelihood of seizure vs cervical radic (2) Headache (3) Back pain Recommendations pronator drift on right side, with decrased fine finger movements on the right side. CT head NML plan ASA statin MRI brain MRA head and neck normotensive Hba1c FLP, TSH pt can walk and is ambulatory no need for chemical DVT ppx;pt understands and will try to walk around in room and with PT This is a complex neurological consultation, it entailed a detailed hx and decision making of high complexity. Dahlia Mark M.D. Nov 17, 2020 21:58
[2020-11-18] VITALS: BP 115/76
--- NOTE | 2020-11-18 | NUR ---
NURSE NOTES: Patient complained of headache. Notified and left a message to Dr. Eastman. Awaiting for call back.
[2020-11-18 04:00] VITALS: BP 118/80
[2020-11-18 06:48] LABS: HEMATOCRIT 37.8 % (37.0-47.0); HEMOGLOBIN 11.8 G/DL (12.0-16.0); MEAN CORPUSCULAR VOLUME 89 FL (80-99); PLATELET COUNT 209 K/UL (150-450); RED BLOOD COUNT 4.26 M/UL (4.20-5.40); RED CELL DISTRIBUTION WIDTH 16.4 % (11.6-14.8); WHITE BLOOD COUNT 4.2 K/UL (4.8-10.8)
[2020-11-18] MEDS: D5 1/2NS 1,000 ML IV SCH ×2 (06:49→23:37)
[2020-11-18 07:04] LABS: EOSINOPHILS % (AUTO) 1.1 % (0.0-3.0); LYMPHOCYTES % (AUTO) 55.6 % (20.0-45.0); NEUTROPHILS % (AUTO) 33.5 % (45.0-75.0)
[2020-11-18 07:11] LABS: ANION GAP 9 mmol/L (5-15); BLOOD UREA NITROGEN 17 mg/dL (7-18); CALCIUM 8.9 MG/DL (8.5-10.1); CARBON DIOXIDE 25 MMOL/L (21-32); CHLORIDE 109 MMOL/L (98-107); CREATININE 0.9 MG/DL (0.55-1.30); POTASSIUM 3.4 MMOL/L (3.5-5.1); SODIUM 143 MMOL/L (136-145)
--- NOTE | 2020-11-18 07:28 | NUR ---
NURSE HAND-OFF REPORT: Important Events on Shift:[Patient complained of headache. Left a message to Dr. Eastman and is aware. Blood pressure is controlled throughout shift. Patient has a scheduled MRI.] Patient Status: [Stable] Diet: [Regular diet] Pending Orders: [] Pending Results/Labs:[] Pending MD notification:[] Latest Vital Signs: Temperature 98.8 , Pulse 66 , B/P 118 /80 , Respiratory Rate 20 , O2 SAT 100 , Room Air, O2 Flow Rate . Vital Sign Comment: [] EKG Rhythm: Sinus Rhythm Rhythm change?: N MD Notified?: - MD Response: Latest Manzo Fall Score: 40 Fall Risk: Medium Risk Safety Measures: Call light Within Reach, Bed Alarm Zone 1, Side Rails Side Rails x2, Bed position Low and Locked. Fall Precautions: Patient Fall Education Report given to [SHON Georges].
--- NOTE | 2020-11-18 07:37 | NUR ---
NURSE NOTES: Patient seen in bed in semifowlers position, with no acute signs of distress. patient is on room air with oxygen saturation within normal limits. The patient has a L wrist 24G IV that is clean patent an intact. The patients bed is in lowest position, locked, side rails x2, bed alarm in zone 1 and call light within reach.
[2020-11-18 08:00] VITALS: BP 144/85
[2020-11-18] MEDS: Lisinopril 10mg tab ORAL SCH ×2 (08:35→18:22)
--- NOTE | 2020-11-18 08:50 | NUR ---
PT EVALUATION NOTE Patient seen for initial evaluation. Patient is independent with bed mobility, transfers and ambulation without assistive device. Skilled inpatient PT intervention not indicated as patient is at baseline level of function and independent with all mobility. Patient discharged from PT, José Manuel MENENDEZ notified. Patient cleared to ambulate with nursing supervision. Addendum: 11/18/20 at 1250 by RADU MAYFIELD PT Amended: Links added.
--- NOTE | 2020-11-18 09:49 | Cardiac Electrophysiology PN ---
Assessment/Plan Assessment/Plan 1. Accelerated hypertension, causing severe headache, possibly TIA. Better on amlodipine 5 mg b.i.d. and lisinopril 10 mg b.i.d. and p.r.n. clonidine Echocardiogram showed Nl EF. ECG NSR and ECG is Nl and ruled out for [place] 2. Weakness. The CT of the brain was negative at this time. Further evaluation by Neurology. MRI brain pending Subjective Subjective MRI brain pending. BP better. No CP or SOB Objective Last 24 Hour Vital Signs Date Time Temp Pulse Resp B/P (MAP) Pulse Ox O2 Delivery O2 Flow Rate FiO2 11/18/20 08:35 144/85 11/18/20 08:34 84 144/85 11/18/20 08:00 73 11/18/20 08:00 97.7 84 20 144/85 (104) 97 11/18/20 04:00 66 11/18/20 04:00 98.8 68 20 118/80 (93) 100 11/18/20 00:00 97.7 68 20 115/76 (89) 97 11/18/20 00:00 84 11/17/20 21:00 Room Air 11/17/20 20:00 70 11/17/20 20:00 99.5 18 122/68 (86) 97 11/17/20 17:26 82 150/86 11/17/20 17:26 150/86 11/17/20 16:00 76 11/17/20 16:00 98.2 20 146/95 (112) 97 11/17/20 15:31 183/112 11/17/20 13:25 Room Air 11/17/20 12:29 97.5 66 18 148/92 100 Room Air 11/17/20 12:25 97.5 66 18 148/92 100 Room Air Intake and Output 11/17/20 11/18/20 19:00 07:00 Intake Total 330 ml 140 ml Balance 330 ml 140 ml Intake Oral 120 ml 140 ml IV Total 210 ml # Voids 1 1 Laboratory Tests Test 11/18/20 06:06 White Blood Count 4.2 K/UL (4.8-10.8) L Red Blood Count 4.26 M/UL (4.20-5.40) Hemoglobin 11.8 G/DL (12.0-16.0) L Hematocrit 37.8 % (37.0-47.0) Mean Corpuscular Volume 89 FL (80-99) Mean Corpuscular Hemoglobin 27.6 PG (27.0-31.0) Mean Corpuscular Hemoglobin Concent 31.1 G/DL (32.0-36.0) L Red Cell Distribution Width 16.4 % (11.6-14.8) H Platelet Count 209 K/UL (150-450) Mean Platelet Volume 7.7 FL (6.5-10.1) Neutrophils (%) (Auto) 33.5 % (45.0-75.0) L Lymphocytes (%) (Auto) 55.6 % (20.0-45.0) H Monocytes (%) (Auto) 8.0 % (1.0-10.0) Eosinophils (%) (Auto) 1.1 % (0.0-3.0) Basophils (%) (Auto) 2.0 % (0.0-2.0) Sodium Level 143 MMOL/L (136-145) Potassium Level 3.4 MMOL/L (3.5-5.1) L Chloride Level 109 MMOL/L (98-107) H Carbon Dioxide Level 25 MMOL/L (21-32) Anion Gap 9 mmol/L (5-15) Blood Urea Nitrogen 17 mg/dL (7-18) Creatinine 0.9 MG/DL (0.55-1.30) Estimat Glomerular Filtration Rate > 60 mL/min (>60) Glucose Level 103 MG/DL (74-106) Calcium Level 8.9 MG/DL (8.5-10.1) Troponin I 0.000 ng/mL (0.000-0.056) Pro-B-Type Natriuretic Peptide 145 pg/mL (0-125) H Thyroid Stimulating Hormone (TSH) 2.024 uiU/mL (0.358-3.740) Free Thyroxine 0.97 NG/DL (0.76-1.46) Objective HEAD AND NECK: No JVD. LUNGS: Clear. CARDIOVASCULAR: Regular S1 and S2 with no gallop or murmur. ABDOMEN: Soft. EXTREMITIES: No pitting edema. Donell Urisa MD Nov 18, 2020 09:49
[2020-11-18 12:00] VITALS: BP 153/87
--- NOTE | 2020-11-18 12:49 | Diagnostic Imaging Report ---
EXAM: MRI Brain w/wo Contrast COMPARISON: CT head 11/17/2020 HISTORY: Headache. Hypertension. TECHNIQUE: MR scan of the brain includes sagittal T1, axial T1, T2, FLAIR, diffusion-weighted and gradient sequences. Following administration of intravenous contrast, additional axial and coronal T1 images obtained. FINDINGS: Study slightly limited due to motion. No acute intracranial process demonstrated. There is no evidence of infarct, hemorrhage, mass effect or shift. No abnormal restricted diffusion. Ventricles and cisterns appear unremarkable. Brainstem and posterior fossa appear unremarkable. The sella and parasellar regions are normal. Normal flow voids identified in the carotid siphons. Sinuses, mastoid air cells and bony calvarium are intact. There is no abnormal enhancement noted on post-contrast images. IMPRESSION: NO ACUTE INTRACRANIAL ABNORMALITY.
--- NOTE | 2020-11-18 12:51 | Diagnostic Imaging Report ---
EXAM: MRI MRA Head no Contrast CLINICAL HISTORY: Headache. Hypertension.. TECHNIQUE: MRA of the [place] performed using 3-D elgb-pg-wccnil technique. COMPARISON: CT head 11/17/2020 FINDINGS: Study slightly limited due to motion. There is a normal appearance of the intracranial vessels. The intracranial internal carotid arteries demonstrates normal course and caliber. Branches of the anterior and middle cerebral arteries are unremarkable. No significant stenosis or aneurysm detected. The posterior circulation also appears unremarkable. The basilar artery and bilateral posterior cerebral arteries do not show any significant stenosis or aneurysm. IMPRESSION: NO ANEURYSM, SIGNIFICANT STENOSIS OR VASCULAR OCCLUSION DEMONSTRATED.
--- NOTE | 2020-11-18 12:54 | Diagnostic Imaging Report ---
EXAM: MRI MRA Neck w Contrast CLINICAL HISTORY: Headache. Hypertension. TECHNIQUE: MRA of the carotids performed using 3-D pmtz-dc-huxbyw technique. COMPARISON: None FINDINGS: The common carotid arteries demonstrates normal course and caliber. There is no significant plaque formation. Mild plaque formation noted at the carotid bulbs bilaterally but without significant stenosis. No vascular occlusion. The vertebral arteries demonstrate antegrade flow. IMPRESSION: NO SIGNIFICANT STENOSIS OR VASCULAR OCCLUSION DEMONSTRATED.
--- NOTE | 2020-11-18 14:04 | NUR ---
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
--- NOTE | 2020-11-18 14:10 | NUR ---
NURSE NOTES: Contacted primary MD for possible introduction of pharmacological therapy due to lack of pain control from tylenol that is ordered. Left message awaiting order.
[2020-11-18 16:00] VITALS: BP 140/82
--- NOTE | 2020-11-18 16:11 | NUR ---
NURSE NOTES: Swallow Evaluation discontinued due to no signs of symptoms of aspiration. Patient tolerating diet.
--- NOTE | 2020-11-18 16:23 | NUR ---
Speech Pathology Note: Per RN report of patient tolerating her current diet of regular texture solids, Bedside Swallow Evaluation deferred/cancelled. Thank you for this consult.
--- NOTE | 2020-11-18 16:29 | History and Physical Report ---
DATE OF ADMISSION: 11/17/2020 TIME SEEN: 2 p.m. CONSULTANTS: 1. Donell Urias MD. 2. . CHIEF COMPLAINT: Right upper extremity weakness, possible CVA. BRIEF HISTORY: This is a 44-year-old female who lives at home presents with increased weakness for past 3 days with right upper extremity, came to the [facility], diagnosed with possible CVA, hypertension and weakness, admitted to telemetry. Currently calm in bed, no complaint. No chest pain. No shortness of breath. No nausea, vomiting, or diarrhea. PAST MEDICAL HISTORY: Include hypertension. PAST SURGICAL HISTORY: Left wrist, hysterectomy. MEDICATIONS: Potassium, Tylenol, amlodipine, lisinopril, clonidine. ALLERGIES: Morphine. SOCIAL HISTORY: No smoking. Positive alcohol. Positive marijuana use. OBJECTIVE: GENERAL: Calm in bed, oriented x3, no acute distress. VITAL SIGNS: Temperature 97, pulse 58, respiratory rate 20, blood pressure 153/87. CARDIOVASCULAR: No murmur. LUNGS: Distant and clear. ABDOMEN: Bowel sounds distant. Nontender and nondistended. EXTREMITIES: No cyanosis, clubbing, or edema. NEUROLOGIC: The patient moves all extremities, slightly weak. Right upper extremity weakness noted. LABORATORY AND DIAGNOSTIC DATA: Labs at this time show white count 4.2, hemoglobin and hematocrit 11 and 37, platelets 209. BMP show potassium 3.4, chloride 109, otherwise normal. BNP is 145. Urinalysis is 1+ blood, 1+ leukocyte esterase. Urine tox is positive for marijuana. ASSESSMENT: 1. Possible CVA. 2. UTI. 3. Right upper extremity weakness. 4. Anemia. 5. Hypertension. 6. Drug abuse. PLAN: 1. Blood pressure and pain control. 2. Detox. 3. Neurology and Cardiology followup. 4. ID evaluation, Dr. Davis. 5. PT, dietary evaluation. 6. CBC and BMP in the morning. Stuart Eastman D.O. DR: Chiki JOB#: [id number] CC:
--- NOTE | 2020-11-18 19:13 | NUR ---
NURSE HAND-OFF REPORT: Important Events on Shift:[COVID rapid and PCR, MRI Brain] Patient Status: [Full code] Diet: [Regular] Pending Orders: [N/A] Pending Results/Labs:[N/A] Pending MD notification:[N/A] Latest Vital Signs: Temperature 98.2 , Pulse 64 , B/P 140 /83 , Respiratory Rate 20 , O2 SAT 100 , Room Air, O2 Flow Rate . Vital Sign Comment: [] EKG Rhythm: Sinus Rhythm Rhythm change?: N MD Notified?: - MD Response: Latest Manzo Fall Score: 40 Fall Risk: Medium Risk Safety Measures: Call light Within Reach, Bed Alarm Zone 1, Side Rails Side Rails x2, Bed position Low and Locked. Fall Precautions: Patient Fall Education Report given to [SHON Willard].
--- NOTE | 2020-11-18 19:20 | NUR ---
NURSE NOTES: Patient received from SHON Georges. Patient is awake, alert and oriented x 4. Patient is able to verbalize her needs, no complaints as of the moment. Patient is on room air with no signs of acute respiratory distress has been noted. Patient has a 24 gauge IV on her left wrist with D5 1/2 NS running at 60 ml/hr. Patient is noted to be able to ambulate. Bed is in the lowest position and locked, call light within reach. Will continue to monitor.
[2020-11-18 20:00] VITALS: BP 147/96
--- NOTE | 2020-11-18 22:25 | Neurology Progress Note ---
Interim History Interim History Interim History No more right arm weakness Review of Systems Neuro Review of Systems 10 point review of systems negative Objective Physical Exam Last Vital Signs Date Time Temp Pulse Resp B/P (MAP) Pulse Ox O2 Delivery O2 Flow Rate FiO2 11/18/20 20:00 96.4 83 18 147/96 (113) 97 11/17/20 21:00 Room Air Laboratory Tests Test 11/18/20 06:06 White Blood Count 4.2 K/UL (4.8-10.8) L Red Blood Count 4.26 M/UL (4.20-5.40) Hemoglobin 11.8 G/DL (12.0-16.0) L Hematocrit 37.8 % (37.0-47.0) Mean Corpuscular Volume 89 FL (80-99) Mean Corpuscular Hemoglobin 27.6 PG (27.0-31.0) Mean Corpuscular Hemoglobin Concent 31.1 G/DL (32.0-36.0) L Red Cell Distribution Width 16.4 % (11.6-14.8) H Platelet Count 209 K/UL (150-450) Mean Platelet Volume 7.7 FL (6.5-10.1) Neutrophils (%) (Auto) 33.5 % (45.0-75.0) L Lymphocytes (%) (Auto) 55.6 % (20.0-45.0) H Monocytes (%) (Auto) 8.0 % (1.0-10.0) Eosinophils (%) (Auto) 1.1 % (0.0-3.0) Basophils (%) (Auto) 2.0 % (0.0-2.0) Sodium Level 143 MMOL/L (136-145) Potassium Level 3.4 MMOL/L (3.5-5.1) L Chloride Level 109 MMOL/L (98-107) H Carbon Dioxide Level 25 MMOL/L (21-32) Anion Gap 9 mmol/L (5-15) Blood Urea Nitrogen 17 mg/dL (7-18) Creatinine 0.9 MG/DL (0.55-1.30) Estimat Glomerular Filtration Rate > 60 mL/min (>60) Glucose Level 103 MG/DL (74-106) Calcium Level 8.9 MG/DL (8.5-10.1) Troponin I 0.000 ng/mL (0.000-0.056) Pro-B-Type Natriuretic Peptide 145 pg/mL (0-125) H Thyroid Stimulating Hormone (TSH) 2.024 uiU/mL (0.358-3.740) Free Thyroxine 0.97 NG/DL (0.76-1.46) Neurologic Exam Objective Last 24 Hour Vital Signs Date Time Temp Pulse Resp B/P (MAP) Pulse Ox O2 Delivery O2 Flow Rate FiO2 11/18/20 20:00 96.4 83 18 147/96 (113) 97 11/18/20 20:00 67 11/18/20 18:22 64 140/83 11/18/20 18:22 140/83 11/18/20 16:00 65 11/18/20 16:00 98.2 75 20 140/82 (101) 100 11/18/20 12:00 58 11/18/20 12:00 97.7 84 20 153/87 (109) 96 11/18/20 08:35 144/85 11/18/20 08:34 84 144/85 11/18/20 08:00 73 11/18/20 08:00 97.7 84 20 144/85 (104) 97 11/18/20 04:00 66 11/18/20 04:00 98.8 68 20 118/80 (93) 100 11/18/20 00:00 97.7 68 20 115/76 (89) 97 11/18/20 00:00 84 CARDIOVASCULAR: pedal pulses present; pt obese LUNGS: non labored breathing ABDOMEN: Soft EXTREMITIES: No cyanosis SKIN: No rashes General neuro exam Mental status A/O x 3 expressive and receptive language intact Cranial nerve 2: vision intact Cranial nerves 3, 4, 6: EOMI no nystagmus Cranial nerve 5: pt says sensation intact b/l Cranial nerve 7: face symmetric on smile can raise eyebros CN8-Able to hear on on NML conversation B/L Cranial nerves 9 and 10. Positive for cough reflex Neck: Able to move the head to the left and right Able to shrug shoulders Cranial nerve 12: midline Pronator drift - Good fine finger movements Strength able to move all extremities with good ROM; Cerebellum FFTN Sensation: no loss of sensation per pt Rombergexamdeferred Gait intact narrow Laboratory Tests Test 11/18/20 06:06 White Blood Count 4.2 K/UL (4.8-10.8) L Red Blood Count 4.26 M/UL (4.20-5.40) Hemoglobin 11.8 G/DL (12.0-16.0) L Hematocrit 37.8 % (37.0-47.0) Mean Corpuscular Volume 89 FL (80-99) Mean Corpuscular Hemoglobin 27.6 PG (27.0-31.0) Mean Corpuscular Hemoglobin Concent 31.1 G/DL (32.0-36.0) L Red Cell Distribution Width 16.4 % (11.6-14.8) H Platelet Count 209 K/UL (150-450) Mean Platelet Volume 7.7 FL (6.5-10.1) Neutrophils (%) (Auto) 33.5 % (45.0-75.0) L Lymphocytes (%) (Auto) 55.6 % (20.0-45.0) H Monocytes (%) (Auto) 8.0 % (1.0-10.0) Eosinophils (%) (Auto) 1.1 % (0.0-3.0) Basophils (%) (Auto) 2.0 % (0.0-2.0) Sodium Level 143 MMOL/L (136-145) Potassium Level 3.4 MMOL/L (3.5-5.1) L Chloride Level 109 MMOL/L (98-107) H Carbon Dioxide Level 25 MMOL/L (21-32) Anion Gap 9 mmol/L (5-15) Blood Urea Nitrogen 17 mg/dL (7-18) Creatinine 0.9 MG/DL (0.55-1.30) Estimat Glomerular Filtration Rate > 60 mL/min (>60) Glucose Level 103 MG/DL (74-106) Calcium Level 8.9 MG/DL (8.5-10.1) Troponin I 0.000 ng/mL (0.000-0.056) Pro-B-Type Natriuretic Peptide 145 pg/mL (0-125) H Thyroid Stimulating Hormone (TSH) 2.024 uiU/mL (0.358-3.740) Free Thyroxine 0.97 NG/DL (0.76-1.46) Impression/Recommendations Problems: (1) Right arm weakness Assessment & Plan: TIA vs low likelihood of seizure vs cervical radic Stroke ruled out; MRI BRAIN NML, MRA HEAD AND NECK ALSO NML (2) Headache (3) Back pain Status: doing well, stable Diagnostic Impression Vital Signs Date Time Temp Pulse Resp B/P (MAP) Pulse Ox O2 Delivery O2 Flow Rate FiO2 11/18/20 20:00 96.4 83 18 147/96 (113) 97 11/18/20 20:00 67 11/18/20 18:22 64 140/83 11/18/20 18:22 140/83 11/18/20 16:00 65 11/18/20 16:00 98.2 75 20 140/82 (101) 100 Recommendations pronator drift RESOLVED ON THE RIGHT SIDE. CT head NML MRI BRAIN NML TIA HIGHEST ON DDX plan ASA statin normotensive Hba1c FLP, TSH pt can walk and is ambulatory no need for chemical DVT ppx;pt understands and will try to walk around in room and with PT . Dahlia Mark M.D. Nov 18, 2020 22:24
[2020-11-19] VITALS: BP 146/92
[2020-11-19 04:00] VITALS: BP 150/95
--- NOTE | 2020-11-19 07:42 | NUR ---
NURSE NOTES: Patient received from SHON Willard. Patient is awake, alert and oriented x 4. Patient is able to verbalize her needs, no complaints as of the moment. Patient is on room air with no signs of acute respiratory distress has been noted. IV site patent and intact. Patient ambualtory, Rn instructed patient to use call light for assistance before ambulating. Patient is noted to be able to ambulate. Bed is in the lowest position and locked, call light within reach. Will continue to monitor.
--- NOTE | 2020-11-19 07:42 | NUR ---
NURSE HAND-OFF REPORT: Important Events on Shift:[] Patient Status: [Stable] Diet: [Regular diet] Pending Orders: [] Pending Results/Labs:[] Pending MD notification:[] Latest Vital Signs: Temperature 97.4 , Pulse 55 , B/P 150 /95 , Respiratory Rate 18 , O2 SAT 98 , Room Air, O2 Flow Rate . Vital Sign Comment: [] EKG Rhythm: Sinus Bradycardia Rhythm change?: N MD Notified?: N - MD Response: Latest Manzo Fall Score: 40 Fall Risk: Medium Risk Safety Measures: Call light Within Reach, Bed Alarm Zone 1, Side Rails Side Rails x2, Bed position Low and Locked. Fall Precautions: Patient Fall Education Report given to [SHON Brown].
[2020-11-19 08:00] VITALS: BP 153/87
[2020-11-19 08:25] LABS: MEAN CORPUSCULAR VOLUME 88 FL (80-99); PLATELET COUNT 203 K/UL (150-450); RED BLOOD COUNT 4.41 M/UL (4.20-5.40); RED CELL DISTRIBUTION WIDTH 16.1 % (11.6-14.8); WHITE BLOOD COUNT 3.3 K/UL (4.8-10.8)
[2020-11-19] MEDS: Lisinopril 10mg tab ORAL SCH ×2 (08:33→08:48)
--- NOTE | 2020-11-19 08:49 | NUR ---
NURSE NOTES: AMlodipine and lisinospril medication taken out of pyxes and out of packet. Patient then refused medication after telling RN she would initially take it. Patient was upset. Patient BP was 153/87 HR of 68
--- NOTE | 2020-11-19 08:51 | NUR ---
NURSE NOTES: Medication disposed, witnessed by Suresh, Charge Nurse
--- NOTE | 2020-11-19 09:05 | Consultation ---
History of Present Illness General Date patient seen: Nov 19, 2020 Time patient seen: 11:33 Chief Complaint: Headache Referring physician: Dr. Eastman Reason for Consultation: R/o infection Present Illness HPI 44yo F with PMH of hysterectomy 8 wks ago, HTN, who p/w R sided CARREON x1 week and RUE weakness x3days. ID c/s to eval for infection. Pt has been AF, HDS in house. WBC is normal/low. Rapid COVID testing neg. Pt is being discharged this morning She says she had a hysterctomy and R breast abscess drainage prior, and the R breast still has intermittent yellow/pus drainage, although currently is scabbed over, but says if she scrubs the scab off it will drain pus again No fevers/chills No pain around her breast No allergies to abx Refusing HIV and RPR testing - says she knows she doesn't have these Allergies: Coded Allergies: MORPHINE (Verified Allergy, Mild, rash, itchiness, 04/16/20) Medication History Scheduled Amlodipine Besylate* (Amlodipine Besylate*), 5 MG ORAL BID, (Reported) Famotidine (Pepcid Ac), 20 MG PO DAILY Lisinopril* (Lisinopril*), 10 MG ORAL BID, (Reported) Miscellaneous Medications [BP med], (Reported) Discontinued Medications Hydrocodone Bit/Acetaminophen 5-325* ([place] 5-325 Tablet*), 1 TAB ORAL Q6H PRN for FOR PAIN Discontinued Reason: Therapy completed Ibuprofen (Motrin), 600 MG ORAL THREE TIMES A DAY Discontinued Reason: Therapy completed Ibuprofen (Motrin), 600 MG ORAL Q8H PRN for For Pain Discontinued Reason: Therapy completed Ibuprofen* (Motrin*), 600 MG ORAL Q8H PRN for FOR PAIN Discontinued Reason: Therapy completed Lidocaine Patch* (Lidoderm Patch*), 1 PATCH TOPIC DAILY Discontinued Reason: Therapy completed Methocarbamol* (Robaxin-750*), 750 MG PO TID Discontinued Reason: Therapy completed Tramadol Hcl* (Ultram*), 50 MG ORAL Q6H PRN for For Pain Discontinued Reason: Therapy completed Patient History Healthcare decision maker Resuscitation status Advanced Directive on File Review of Systems ROS Narrative 10-point ROS neg except as noted in HPI Physical Exam Physical Exam Narrative Gen: NAD HEENT: NCAT Pulm: BL chest rise Abd: Non-distended Ext: No c/c/e Skin: No visible rashes. R breast w/ scab over lower aspect, no drainage, some induration around scab wo TTP, no erythema Neuro: Awake, alert, interactive Last 24 Hour Vital Signs Date Time Temp Pulse Resp B/P (MAP) Pulse Ox O2 Delivery O2 Flow Rate FiO2 11/19/20 08:48 68 153/87 11/19/20 08:48 153/87 11/19/20 04:00 97.4 58 18 150/95 (113) 98 11/19/20 04:00 55 11/19/20 00:00 59 11/19/20 00:00 97.9 62 18 146/92 (110) 97 11/18/20 20:00 96.4 83 18 147/96 (113) 97 11/18/20 20:00 67 11/18/20 18:22 64 140/83 11/18/20 18:22 140/83 11/18/20 16:00 65 11/18/20 16:00 98.2 75 20 140/82 (101) 100 11/18/20 12:00 58 11/18/20 12:00 97.7 84 20 153/87 (109) 96 Intake and Output 11/18/20 11/19/20 19:00 07:00 Intake Total 1120 ml 240 ml Balance 1120 ml 240 ml Intake Oral 400 ml 240 ml IV Total 720 ml # Voids 2 1 Laboratory Tests Test 11/19/20 06:00 White Blood Count 3.3 K/UL (4.8-10.8) L Red Blood Count 4.41 M/UL (4.20-5.40) Hemoglobin 12.0 G/DL (12.0-16.0) Hematocrit 39.0 % (37.0-47.0) Mean Corpuscular Volume 88 FL (80-99) Mean Corpuscular Hemoglobin 27.3 PG (27.0-31.0) Mean Corpuscular Hemoglobin Concent 30.9 G/DL (32.0-36.0) L Red Cell Distribution Width 16.1 % (11.6-14.8) H Platelet Count 203 K/UL (150-450) Mean Platelet Volume 7.4 FL (6.5-10.1) Neutrophils (%) (Auto) % (45.0-75.0) Lymphocytes (%) (Auto) % (20.0-45.0) Monocytes (%) (Auto) % (1.0-10.0) Eosinophils (%) (Auto) % (0.0-3.0) Basophils (%) (Auto) % (0.0-2.0) Differential Total Cells Counted 100 Neutrophils % (Manual) 40 % (45-75) L Lymphocytes % (Manual) 54 % (20-45) H Monocytes % (Manual) 5 % (1-10) Eosinophils % (Manual) 1 % (0-3) Basophils % (Manual) 0 % (0-2) Band Neutrophils 0 % (0-8) Platelet Estimate Adequate Platelet Morphology Normal Hypochromasia 1+ Anisocytosis 1+ Sodium Level Pending Potassium Level Pending Chloride Level Pending Carbon Dioxide Level Pending Blood Urea Nitrogen Pending Creatinine Pending Estimat Glomerular Filtration Rate Pending Glucose Level Pending Calcium Level Pending Microbiology Date/Time Source Procedure Growth Status 11/18/20 18:25 Nasopharynx SARS-CoV-2 RdRp Gene Assay - Final Complete Height (Feet): 5 Height (Inches): 5.00 Weight (Pounds): 200 Medications Current Medications Medications (Trade) Dose Ordered Sig/Mohit Route PRN Reason Start Time Stop Time Status Last Admin Dose Admin Acetaminophen (Tylenol) 650 mg Q6H PRN ORAL For Headache 11/18/20 05:30 12/18/20 05:29 11/19/20 03:08 Amlodipine Besylate (Norvasc) 5 mg BID ORAL 11/17/20 18:00 12/17/20 17:59 11/18/20 18:22 Barium Sulfate (Varibar Honey) 250 ml NOW PRN MC RAD 11/17/20 15:00 11/20/20 14:59 Barium Sulfate (Varibar [place]) 240 ml NOW PRN MC RAD 11/17/20 15:00 11/20/20 14:59 Barium Sulfate (Varibar Pudding) 230 ml NOW PRN MC RAD 11/17/20 15:00 11/20/20 14:59 Barium Sulfate (Varibar Thin Liquid powder) 148 gm NOW PRN MC RAD 11/17/20 15:00 11/20/20 14:59 Clonidine HCl (Catapres Tab) 0.1 mg Q2H PRN ORAL Sys > 170 11/17/20 14:00 02/15/21 13:59 11/17/20 15:31 Dextrose/Sodium Chloride 1,000 ml @ 60 mls/hr [id number] IV 11/17/20 14:15 12/17/20 14:14 11/18/20 23:37 Lisinopril (ZestriL) 10 mg BID ORAL 11/17/20 18:00 12/17/20 17:59 11/18/20 18:22 Assessment/Plan Assessment/Plan: 44yo F with: Afebrile Normal/low WBC Satting well on RA R/o infection 11/17 CXR: No acute process 11/18 COVID rapid neg, PCR p R breast abscess s/p I&D prior, now w/ intermittent drainage per pt R sided CARREON RUE weakness 11/17 CTH neg 11/18 MRI head neg Cr 0.9 HTN 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 Pt has f/u with her surgery in 5 days which is perfect timing to f/u if the abx helped HIV, RPR screen given CARREON, TIA - pt refusing F/u COVID PCR screen Monitor CBC/CMP Monitor temp curve, hemodynamics Monitor resp status D/w RN Thank you for this consult. [facility] will continue to follow. Brianda Khalil M.D. Nov 19, 2020 09:05
[2020-11-19 09:06] LABS: ANION GAP 7 mmol/L (5-15); BLOOD UREA NITROGEN 11 mg/dL (7-18); CALCIUM 9.2 MG/DL (8.5-10.1); CARBON DIOXIDE 26 MMOL/L (21-32); CHLORIDE 109 MMOL/L (98-107); CREATININE 0.8 MG/DL (0.55-1.30); POTASSIUM 3.6 MMOL/L (3.5-5.1); SODIUM 142 MMOL/L (136-145)
--- NOTE | 2020-11-19 09:54 | NUR ---
CASE MANAGEMENT:REVIEW 11/19/20 SI: TIA RT ARM WEAKNESS. HEADACHE. BACK PAIN 97.4 68 18 153/87 98% on ra IS: NORVASC PO BID LISINOPRIL PO BID IVF@60/HR : TELEMETRY STATUS DCP; FROM HOME PLAN: MRI,CT,MRA ALL NEGATIVE REQUESTED DISCHARGE ORDER FROM DR SAUER
--- NOTE | 2020-11-19 10:06 | General Progress Note ---
Subjective Constitutional: Reports: weakness Allergies: Coded Allergies: MORPHINE (Verified Allergy, Mild, rash, itchiness, 04/16/20) All Systems: reviewed and negative except above Subjective calm in bed Objective Last 24 Hour Vital Signs Date Time Temp Pulse Resp B/P (MAP) Pulse Ox O2 Delivery O2 Flow Rate FiO2 11/19/20 08:48 68 153/87 11/19/20 08:48 153/87 11/19/20 04:00 97.4 58 18 150/95 (113) 98 11/19/20 04:00 55 11/19/20 00:00 59 11/19/20 00:00 97.9 62 18 146/92 (110) 97 11/18/20 20:00 96.4 83 18 147/96 (113) 97 11/18/20 20:00 67 11/18/20 18:22 64 140/83 11/18/20 18:22 140/83 11/18/20 16:00 65 11/18/20 16:00 98.2 75 20 140/82 (101) 100 11/18/20 12:00 58 11/18/20 12:00 97.7 84 20 153/87 (109) 96 Intake and Output 11/18/20 11/19/20 19:00 07:00 Intake Total 1120 ml 240 ml Balance 1120 ml 240 ml Intake Oral 400 ml 240 ml IV Total 720 ml # Voids 2 1 Laboratory Tests 11/19/20 06:00: White Blood Count 3.3L, Red Blood Count 4.41, Hemoglobin 12.0, Hematocrit 39.0, Mean Corpuscular Volume 88, Mean Corpuscular Hemoglobin 27.3, Mean Corpuscular Hemoglobin Concent 30.9L, Red Cell Distribution Width 16.1H, Platelet Count 203, Mean Platelet Volume 7.4, Neutrophils (%) (Auto) , Lymphocytes (%) (Auto) , Monocytes (%) (Auto) , Eosinophils (%) (Auto) , Basophils (%) (Auto) , Differential Total Cells Counted 100, Neutrophils % (Manual) 40L, Lymphocytes % (Manual) 54H, Monocytes % (Manual) 5, Eosinophils % (Manual) 1, Basophils % (Manual) 0, Band Neutrophils 0, Platelet Estimate Adequate, Platelet Morphology Normal, Hypochromasia 1+, Anisocytosis 1+, Sodium Level 142, Potassium Level 3.6, Chloride Level 109H, Carbon Dioxide Level 26, Anion Gap 7, Blood Urea Nitrogen 11, Creatinine 0.8, Estimat Glomerular Filtration Rate > 60, Glucose Level 94, Calcium Level 9.2 Height (Feet): 5 Height (Inches): 5.00 Weight (Pounds): 200 General Appearance: alert EENT: normal ENT inspection Neck: normal alignment Cardiovascular: normal peripheral pulses, normal rate, regular rhythm Respiratory/Chest: chest wall non-tender, lungs clear, normal breath sounds Abdomen: normal bowel sounds, non tender, soft Extremities: normal inspection Edema: no edema noted Arm (L), no edema noted Arm (R), no edema noted Leg (L), no edema noted Leg (R), no edema noted Pedal (L), no edema noted Pedal (R), no edema noted Generalized Neurologic: responsive, motor weakness Skin: normal pigmentation, warm/dry Assessment/Plan Problem List: (1) UTI (urinary tract infection) ICD Codes: N39.0 - Urinary tract infection, site not specified SNOMED: 46559456 (2) Anemia ICD Codes: D64.9 - Anemia, unspecified SNOMED: 224258864 (3) HTN (hypertension) ICD Codes: I10 - Essential (primary) hypertension SNOMED: 37622848 (4) Drug use ICD Codes: F19.90 - Other psychoactive substance use, unspecified, uncomplicated SNOMED: 820945479 (5) Right arm weakness ICD Codes: R29.898 - Other symptoms and signs involving the musculoskeletal system SNOMED: 463782713 Status: unchanged Assessment/Plan: pt diet neuro f/u bp control cbc bmp am Stuart Eastman DO Nov 19, 2020 10:06
--- NOTE | 2020-11-19 10:23 | NUR ---
DISCHARGE PLANNED DISCHARGE DISCUSSED WITH DR SAUER AND NEUROLOGIST DISCHARGE HOME WITH HOSPITAL MEDS. F/U OUTPATIENT WITH PCP FOR MRI C-SPINE AND IF NORMAL CONSIDER EEG ABOVE ORDER RECEIVED AND ENTERED
[2020-11-19] MEDS ORDERED: AMLODIPINE BESYL5 MG ORAL (10:52)
[2020-11-19] MEDS ORDERED: LISINOPRIL10 MG ORAL (10:53)
[2020-11-19 12:00] VITALS: BP 135/68
--- NOTE | 2020-11-19 12:10 | NUR ---
NURSE NOTES: Patient discharged in stable conditions. RN educated patient on medications to be taken at home. RN included in instruction that patient needs to contact PCP for follow up appointment for MRI of spine. Patient aware and understood instructions. Discharge packet completed and signed with patient. Belongings accounted for and signed. RN escorted patient off the floor to [place] car. patient left facility safely
--- NOTE | 2020-11-22 17:14 | Discharge Summary ---
Discharge Summary Discharge Summary _ Date of admission: 11/17/2020 Date of discharge: 11/19/[address] Eastman History of Present Illness and Brief Hospital Course Ms. Huerta is a 45-year-old female with past medical history of recent hysterectomy (8 weeks ago), and hypertension on amlodipine, who presented to the ED for evaluation of right-sided headache x1 week, and right upper extremity weakness x3 days. She complained of gradual onset right-sided headache behind her right eye. She denied any vision changes. She never had symptoms like these before. Her EKG showed normal sinus rhythm without signs of ischemia. CT of head revealed no acute abnormalities. Her chest x-ray showed no infiltrates or effusion. Her COVID-19 test via rapid gene assay was negative in the ER which was later confirmed with negative PCR result. Patient was given aspirin in the ER and was admitted to the telemetry unit for suspected CVA. Brain MRI, and MRA of head and neck, were all negative for acute findings. She initially presented with right-sided pronator drift which resolved on day 2 of admission. The most likely differential was TIA. At this time, patient was ambulatory and there was no need for chemical DVT prophylaxis. Her accelerated hypertension causing severe headache was better on amlodipine, lisinopril, and clonidine as needed. Echocardiogram showed normal ejection fraction. On 11/19/2020, patient was medically stable for discharge. She is to follow-up with PCP for MRI of spine. Consultants: Cardiology Dr. Urias Infectious disease Dr. Khalil Neurology Dr. Mark Discharge Condition Improved and stable Final diagnoses Accelerated hypertension Headache Right-sided weakness UTI Anemia Drug abuse Back pain I have been assigned to dictate discharge summary for this account. I was not involved in the patient's management Mohsen Matias Nov 22, 2020 17:14
== END 2020-11-19 12:05 | disposition home or self-care (01) | DRG 47 ==
LOC: EMR 07:45 → 2E 08:07 → EDBEDREQ 12:05 → 2E 11-18 16:03
DX: G45.9 Transient cerebral ischemic attack, unspecified (principal); N39.0 Urinary tract infection, site not specified; I10 Essential (primary) hypertension; Z90.710 Acquired absence of both cervix and uterus; Z88.6 Allergy status to analgesic agent; R51.9 Headache, unspecified; R29.898 Other symptoms and signs involving the musculoskeletal system; M54.9 Dorsalgia, unspecified
CPT/HCPCS: 36415; 70450; 70544; 70548; 70553; 71045; 80048; 80053; 80307; 81003; 83880; 84439; 84443; 84484; 85007; 85025; 86592; 86703; 93005; 93306; 96374; 99285; A9585; J8499; U0002